=== PATIENT | female | born 1955 | race Caucasian/White ===

== ENCOUNTER → 2016-05-21 | Day surgery (SDC) | payer OTHER ==
[~2016-05-21] VITALS: Ht 162.6 cm; Wt 90.0 kg
[~2016-05-21] MED LIST: ACET-1256 PO; AMLO2.5T PO; AMLO5TAB2 PO; ASPI81TA28 PO; ATEN-173 PO; ATEN50TA8 PO; BTP80 PO; CALC500C70 PO; CMD/25 PO; CMD75 PO; FLEC50TA20 PO; GLUC10007 PO; HYZ/50125 PO; LIDOCAINE HCL 2% 2 ML VIAL (20MG/ML) ONE; LUTE1CAP9 PO; LVNIS100 SQ; MULT-513 PO; PRM625 PO; PROPOFOL IV EMULSION 10 MG/ML 20 ML VIAL IV ONE; TNR25 PO; WARF5TAB90 PO
[2016-05-21 07:05] VITALS: BP 139/97; PULSE 118; TEMP 36.6; O2SAT 98; Ht 162.6 cm; Wt 90.0 kg
[2016-05-21 07:38] VITALS: BP 138/94; PULSE 90; O2SAT 97
[2016-05-21 07:42] VITALS: BP 81/56; PULSE 90; O2SAT 97
[2016-05-21 07:43] VITALS: BP_SYST 109; BP_SYST 98; BP_DIAS 54; BP_DIAS 73; PULSE 105; PULSE 99; O2SAT 97
--- NOTE | 2016-05-21 09:29 | CARDIOVERSION ---
DATE OF OPERATION: 05/21/2016 PROCEDURE: Cardioversion. HISTORY OF PRESENT ILLNESS: The patient is a 60-year-old female who has persistent atrial fibrillation. She has been on a combination of metoprolol and flecainide as well as Coumadin. Her last INR was 2.6. PROCEDURE SUMMARY: The patient was seen and evaluated in the holding area of the cook house laborer. After informed consent was obtained the patient received sedation by anesthesia and then received 200 joules of biphasic energy converting her to a normal sinus rhythm however, after approximately 30 seconds the patient converted back to atrial fibrillation. She was then cardioverted again with 200 joules of biphasic energy to sinus rhythm and unfortunately did not maintain sinus rhythm and converted back to atrial fibrillation. A third cardioversion was performed with the same result. The patient was allowed to recover post cardioversion. She remains in persistent atrial fibrillation. The plan will be for the patient to be discharged home today. She will be allowed to have the flecainide washed out over the next several days and then return later this week to be admitted to the hospital for the start of sotalol. Once she has an adequate number of sotalol doses she will undergo repeat cardioversion. I attest to the content of the Intraoperative Record and any orders documented therein. Any exceptio ns are noted below.
--- NOTE | 2016-05-21 09:41 | Discharge Instructions ---
Discharge Instructions Admission Reason for Admission: Afib *With Anesthesia* Discharge Discharge Diagnosis / Problem: atrila fibrillation Discharge Goals Goal(s): Improve function Activity Recommendations Activity Limitations: resume your previous activity . Instructions / Follow-Up Instructions / Follow-Up Office will call with readmission instructions Current Hospital Diet Patient's current hospital diet: Discharge Diet Recommended Diet: Regular Diet Pending Studies Studies pending at discharge: no Medical Emergencies . Who to Call and When: Medical Emergencies: If at any time you feel your situation is an emergency, please call 911 immediately. . Non-Emergent Contact Non-Emergency issues call your: Scallop Binder . . "Provider Documentation" section prepared by Arnav Elizabeth. VTE Core Measure Inpt VTE Proph given/why not?: Warfarin (Coumadin)
[2016-05-21 09:45] VITALS: BP 126/80; PULSE 87; O2SAT 98
--- NOTE | 2016-05-21 10:16 | Anesthesiology Progress Note ---
Anesthesia Post Op Note Date & Time May 21, 2016 at 10:15 Vital Signs Pain Intensity: 0 Vital Signs Past 12 Hours Date Time Temp Pulse Resp B/P Pulse Ox O2 Delivery O2 Flow Rate FiO2 05/21/16 09:45 87 16 126/80 98 Room Air 05/21/16 09:40 88 16 126/80 98 Room Air 05/21/16 09:25 84 16 124/85 98 Room Air 05/21/16 09:10 95 16 120/80 98 Room Air 05/21/16 08:55 92 16 113/81 98 Room Air 05/21/16 08:40 78 16 114/90 98 Room Air 05/21/16 08:25 80 16 107/73 98 Room Air 05/21/16 08:10 76 16 116/78 98 Room Air 05/21/16 07:50 80 18 109/73 95 Nasal Cannula 3 05/21/16 07:43 105 16 98/54 97 Nasal Cannula 3 05/21/16 07:43 99 16 109/73 97 Nasal Cannula 3 05/21/16 07:42 90 16 81/56 97 Nasal Cannula 3 05/21/16 07:38 90 16 138/94 97 Nasal Cannula 3 05/21/16 07:05 36.6 118 16 139/97 98 Room Air Notes Mental Status: alert / awake / arousable, participated in evaluation Pt Amnestic to Procedure: Yes Nausea / Vomiting: adequately controlled Pain: adequately controlled Airway Patency, RR, SpO2: stable & adequate BP & HR: stable & adequate Hydration State: stable & adequate Anesthetic Complications: no major complications apparent
--- NOTE | 2016-05-21 10:58 | History & Physical Bridge Note ---
H&P Re-Evaluation Bridge Note: I have examined the patient, reviewed the History & Physical and in the interval since the performance of the History & Physical I have noted the following changes of clinical significance: No changes noted
== END | disposition home or self-care (01) ==
LOC: C.CATH 06:43
PROVIDERS: ATTEND Internal Medicine Interventional Cardiology
DX: I48.1 Persistent atrial fibrillation (principal); Z79.01 Long term (current) use of anticoagulants; F17.200 Nicotine dependence, unspecified, uncomplicated; E66.9 Obesity, unspecified

== ENCOUNTER 2016-05-24 08:34 | Inpatient (IN) | payer OTHER ==
[2016-05-24] VITALS (8 sets, daily range): BP systolic 129–148; BP diastolic 86–103; PULSE 102–121; TEMP 36.6–37.2; O2SAT 95–100; Ht 162.6 cm; Wt 88.3 kg
[~2016-05-24] VITALS: Ht 162.6 cm; Wt 88.3 kg
[~2016-05-24 08:34] MED LIST changes: -AMLO5TAB2 PO; -BTP80 PO; -CMD75 PO; -FLEC50TA20 PO; -LIDOCAINE HCL 2% 2 ML VIAL (20MG/ML) ONE; -LVNIS100 SQ; -PROPOFOL IV EMULSION 10 MG/ML 20 ML VIAL IV ONE; -TNR25 PO
[2016-05-24] MEDS ORDERED: ACETAMINOPHEN 325 MG TAB PO PRN (09:00)
[2016-05-24] MEDS ORDERED: ALUMINUM/MAGNESIUM/SIMETH (MAALOX MAX) 30 ML UDC PO PRN (09:00)
[2016-05-24] MEDS ORDERED: POLYETHYLENE (MIRALAX) 17 GM PACK PO PRN (09:00)
[2016-05-24] MEDS ORDERED: MAGNESIUM HYDROXIDE SUSP 30 ML UDC PO PRN (09:00)
[2016-05-24] MEDS ORDERED: ONDANSETRON INJ 2 MG/ML 2 ML VIAL IV PRN (09:00)
[2016-05-24] MEDS ORDERED: ZOLPIDEM TARTRATE 5 MG TAB PO PRN ×2 (09:00)
--- NOTE | 2016-05-24 09:52 | HISTORY & PHYSICAL EXAMINATION ---
DATE OF ADMISSION: 05/24/2016 CHIEF COMPLAINT: Atrial fibrillation. HISTORY OF PRESENT ILLNESS: This is a 60-year-old female, who has had paroxysmal atrial fibrillation. She had been well controlled with flecainide until recently, she presented with persistent atrial fibrillation. Earlier this week, she underwent a cardioversion where she was able to convert to a normal sinus rhythm, but would not hold for more than 30 seconds to a minute and then returned to atrial fibrillation. We have allowed the flecainide to wash out as an outpatient. She is now admitted for the start of sotalol and will be admitted to a telemetry bed. She has no complaints today. All questions were answered. ALLERGIES: LISINOPRIL, SHE GETS A COUGH. PAST MEDICAL HISTORY: The patient has a history of hypertension. No prior history of diabetes, kidney disease or strokes. SOCIAL HISTORY: The patient is a cigarette smoker. FAMILY MEDICAL HISTORY: Noncontributory. REVIEW OF SYSTEMS: A 10-point review of systems is negative except for the history of chief complaint. PHYSICAL EXAMINATION: GENERAL: She is alert and oriented, in no acute distress. VITAL SIGNS: Blood pressure is 130/70 and pulse is irregular at 100 beats per minute. She is afebrile. HEENT: She is normocephalic. Pupils are equal and reactive to light. Extraocular muscles are intact bilaterally. NECK: The neck veins are flat. Carotids have good upstrokes bilaterally without bruits. Thyroid is nonpalpable. RESPIRATORY: Breath sounds equal bilaterally and clear to auscultation. CARDIOVASCULAR: Heart has a regular rhythm. Normal S1 and S2. No S3 or S4. No cardiac rubs or murmurs. GASTROINTESTINAL: Abdomen is soft and nontender without organomegaly. EXTREMITIES: Free of edema, digit clubbing or cyanosis. NEUROLOGIC: Grossly intact. SKIN: Warm to touch. LYMPH NODES: Negative to palpation. LABORATORY DATA: The patient remains in atrial fibrillation on telemetry. IMPRESSION: 1. Persistent atrial fibrillation. 2. Need for start of antiarrhythmic medication. RECOMMENDATIONS: As outlined above, the patient will be started on sotalol 80 mg twice daily. I have purposely held her atenolol until the sotalol is started and we can see if her heart rate responds before adding back any beta blockers. All her other medications including her warfarin will remain the same.
[2016-05-24 10:06] LABS: BASO % 0.2 %; BASO ABS # 0.01 K/uL (0-0.2); COMPLETE YES; EOS % 2.7 %; HEMATOCRIT 40.2 % (37-47); IG% 0.3 %; LYMPH % 24.7 %; LYMPH ABS # 1.57 K/uL (1.2-3.4); MEAN CORPUSCULAR HEMOGLOBIN 35.8 pg (25-34); MEAN CORPUSCULAR HGB CONC 35.1 g/dl (32-36); MONO % 5.7 %; NEUT % 66.4 %; PLATELET COUNT 232 K/uL (130-400); RED BLOOD COUNT 3.94 M/uL (4.2-5.4); WHITE BLOOD COUNT 6.36 K/uL (4.8-10.8)
[2016-05-24] MEDS: SOTALOL HCL 80 MG TAB PO SCH ×2 (10:12→20:52)
[2016-05-24 10:15] LABS: INR 2.2 (0.9-1.1); PARTIAL THROMBOPLASTIN RATIO 1.4; PROTHROMBIN TIME (PATIENT) 23.9 SECONDS (9.0-12.0)
[2016-05-24 10:29] LABS: BLOOD UREA NITROGEN 27 mg/dl (7-18); BUN/CREATININE RATIO 24.8 (10-20); CALCIUM 9.2 mg/dl (8.5-10.1); CARBON DIOXIDE 25 mmol/L (21-32); CHLORIDE 104 mmol/L (98-107); GLUCOSE 130 mg/dl (70-99); MAGNESIUM 1.9 mg/dl (1.8-2.4); POTASSIUM 3.6 mmol/L (3.5-5.1); SODIUM 140 mmol/L (136-145)
[2016-05-24] MEDS ORDERED: WARFARIN SOD 5 MG TAB PO SCH (16:00)
[2016-05-24] MEDS: WARFARIN SOD 5 MG TAB PO SCH (16:50)
--- NOTE | 2016-05-24 18:04 | Anesthesiology Progress Note ---
Anesthesia Progress Note Date of Service May 24, 2016. Progress Notes The patient is a 60 y/o female scheduled for cardioversion on 05/27/16. The patient had a cardioversion on 05/21/16 that briefly converted her afib to NSR. However, she soon reverted back to afib with RVR. She is now admitted on telemetry and has been changed to sotalol. PMH includes smoking, HTN, and obesity. Her EKG shows afib with RVR and inferior T wave abnormality. Labs are significant for INR 2.2 and BUN 27. On exam the patient is pleasant. She has a MP 3 airway with full neck extension and upper partial dentures. Lungs are clear. Heart is irregular. She is negative for carotid bruits. The patient was consented for MAC sedation. She was counseled to remain NPO after 2300 on 05/26/16.
[2016-05-25] VITALS (7 sets, daily range): BP systolic 118–157; BP diastolic 81–107; PULSE 96–118; TEMP 36.6–37.2; O2SAT 95–98
[2016-05-25] MEDS: AMLODIPINE BESYLATE 5 MG TAB PO SCH (08:17)
[2016-05-25] MEDS: SOTALOL HCL 80 MG TAB PO SCH ×2 (08:17→20:51)
[2016-05-25] MEDS: LOSARTAN/HCTZ 50-12.5 EA TAB PO SCH (08:18)
[2016-05-25] MEDS: ESTROGENS, CONJUGATED 0.625 MG TAB PO SCH (08:18)
[2016-05-25] MEDS: ASPIRIN 81 MG ECTAB PO SCH (08:18)
--- NOTE | 2016-05-25 10:01 | PROGRESS NOTE ---
DATE: 05/25/2016 FOLLOWUP VISIT SUBJECTIVE: The patient is a 60-year-old female who was admitted for the start of antiarrhythmic medication with sotalol. She has received her first 2 doses of sotalol. I deliberately held her atenolol until we saw her heart rate response to the sotalol. Her heart rates have been in the 90s to low 100s and today I will restart her atenolol at 25 mg twice daily. Her EKG shows atrial fibrillation and no significant extension of her QT interval. She has no complaints today. OBJECTIVE: VITAL SIGNS: Blood pressure 137/90, pulse is irregular at 96 beats per minute. She is afebrile. GENERAL: She is alert and oriented. HEENT: She is normocephalic. She wears corrective lenses. NECK: The neck veins are flat. Carotids have good upstrokes bilaterally without bruits. Thyroid is nonpalpable. RESPIRATORY: Breath sounds are equal bilaterally and clear to auscultation. CARDIOVASCULAR: Heart has a regular rhythm. Normal S1, S2. No S3, S4. No cardiac rubs or murmurs. GASTROINTESTINAL: Abdomen is soft, nontender without organomegaly. EXTREMITIES: Free of edema, digital clubbing or cyanosis. NEUROLOGIC: Grossly intact. SKIN: Warm to touch. LYMPH NODES: Negative to palpation. IMPRESSION: 1. Persistent atrial fibrillation. 2. Hypertension. RECOMMENDATIONS: As outlined above, I have restarted the patient's atenolol at a reduced dose of 25 mg twice daily. She had been on 50 mg of atenolol in the morning and 25 mg at night. We will see what her heart rate response is with this current dose of atenolol and her sotalol. Otherwise, she is doing well and we still plan on performing cardioversion on Friday.
[2016-05-25] MEDS: WARFARIN SOD 5 MG TAB PO SCH (15:56)
[2016-05-26 04:27] VITALS: BP 128/89; PULSE 93; TEMP 37.4; O2SAT 97
[2016-05-26 07:38] VITALS: BP 143/101; PULSE 100; TEMP 36.7; O2SAT 99
[2016-05-26 07:39] VITALS: BP 140/96
[2016-05-26] MEDS: LOSARTAN/HCTZ 50-12.5 EA TAB PO SCH (08:45)
[2016-05-26] MEDS: ESTROGENS, CONJUGATED 0.625 MG TAB PO SCH (08:46)
[2016-05-26] MEDS: SOTALOL HCL 80 MG TAB PO SCH ×2 (08:46→20:29)
[2016-05-26] MEDS: ASPIRIN 81 MG ECTAB PO SCH (08:46)
[2016-05-26] MEDS: AMLODIPINE BESYLATE 5 MG TAB PO SCH (08:46)
--- NOTE | 2016-05-26 10:27 | PROGRESS NOTE ---
DATE: 05/26/2016 FOLLOWUP VISIT SUBJECTIVE: The patient is a 60-year-old female with persistent atrial fibrillation who was admitted for the start of sotalol. She is tolerating this medication. Yesterday we add back her atenolol at a lower dose. She had been on 75 mg daily, and we started her with 50 mg daily. Her heart rate still remained a little bit on the high side and we will restart her home dose of 75 mg of atenolol a day, that being 50 mg in the morning and 25 in the evening. We will check an INR today. The plan is for cardioversion in the morning. OBJECTIVE: VITAL SIGNS: Blood pressure is 140/90, pulse is irregular at 100 beats per minute. GENERAL: She is afebrile. HEENT: She is normocephalic. Pupils are equal and reactive to light. Extraocular muscles are intact bilaterally. NECK: The neck veins are flat. Carotids have good upstrokes bilaterally without bruits. Thyroid is nonpalpable. RESPIRATORY: Breath sounds equal bilaterally and clear to auscultation. CARDIOVASCULAR: Heart has an irregular rhythm. Normal S1, S2. No S3, S4. No cardiac rubs or murmurs. GASTROINTESTINAL: Abdomen is soft, nontender without organomegaly. EXTREMITIES: Free of edema, digit clubbing, or cyanosis. NEUROLOGIC: Grossly intact. SKIN: Warm to touch. LYMPH NODES: Negative to palpation. LABORATORY DATA: INR is pending. EKG shows atrial fibrillation with no prolongation of the QT interval. IMPRESSION: 1. Persistent atrial fibrillation. 2. Hypertension. RECOMMENDATIONS: The patient as outlined above will undergo a cardioversion tomorrow. I have explained the risks, benefits and intent of the cardioversion to her, and she is willing to proceed.
[2016-05-26 11:18] LABS: INR 1.7 (0.9-1.1); PROTHROMBIN TIME (PATIENT) 18.9 SECONDS (9.0-12.0)
[2016-05-26 11:29] VITALS: BP_SYST 121; BP_SYST 149; BP_DIAS 121; BP_DIAS 93; PULSE 107; TEMP 37; O2SAT 97
[2016-05-26 15:39] VITALS: BP 129/101; PULSE 99; TEMP 37.2; O2SAT 99
[2016-05-26] MEDS ORDERED: WARFARIN SOD 7.5 MG TAB PO SCH (16:00)
[2016-05-26 19:42] VITALS: BP 124/95; PULSE 126; TEMP 36.7; O2SAT 98
[2016-05-27] VITALS (17 sets, daily range): BP systolic 111–173; BP diastolic 61–115; PULSE 56–111; TEMP 36.6–36.8; O2SAT 95–100
[2016-05-27 06:00] LABS: INR 1.7 (0.9-1.1)
[2016-05-27] MEDS ORDERED: PROPOFOL IV EMULSION 10 MG/ML 20 ML VIAL IV ONE (07:00)
[2016-05-27] MEDS ORDERED: MIDAZOLAM HCL 1 MG/ML 2ML VIAL ONE (07:30)
[2016-05-27] MEDS ORDERED: FENTANYL CITRATE INJ 50 MCG/1 ML 2 ML VIAL ONE (07:30)
[2016-05-27] MEDS ORDERED: ENOXAPARIN 100 MG/1ML SYR ONE (07:38)
--- NOTE | 2016-05-27 08:05 | Cardiology Procedure Brief Nt ---
Preliminary Cardiology Note Procedure Date May 27, 2016. Pre-Procedure Diagnosis symptomatic atrial fibrillation Post-Procedure Diagnosis No NILO thrombus, successful conversion to SR Procedure(s) Performed JAYCE guided Cardioversion Bottling Machine Operator Sonia Reed DO Wood Boring Machine Operator(s) Not applicable Estimated Blood Loss none Preliminary Findings No LA to NILO thrombus, Successful conversion to SR with 200 J of biphasic energy x 1 dose Recommendations Continue Sotalol and coumadin. Lovenox bridge to INR > 2 Specimens not applicable Anesthesia per anesthesia,Versed 4mg IV,Fentanyl 100 mcg IV, [id number],narcan 0.4mg Complication(s) None Disposition recovery in cardiac label fuser tender staging area , then transfer to PCU
--- NOTE | 2016-05-27 08:07 | Anesthesiology Progress Note ---
Anesthesia Post Op Note Date & Time May 27, 2016 at 08:07 Vital Signs Pain Intensity: 0 Vital Signs Past 12 Hours Date Time Temp Pulse Resp B/P Pulse Ox O2 Delivery O2 Flow Rate FiO2 05/27/16 08:01 56 16 140/65 99 Nasal Cannula 4 05/27/16 07:58 56 16 141/90 99 Nasal Cannula 4 05/27/16 07:54 60 16 152/82 99 Nasal Cannula 4 05/27/16 07:51 111 16 157/115 99 Nasal Cannula 4 05/27/16 07:46 102 16 158/107 99 Nasal Cannula 4 05/27/16 07:41 105 16 140/100 99 Nasal Cannula 4 05/27/16 07:33 36.8 106 16 173/110 100 Room Air 05/27/16 04:06 Room Air 05/27/16 03:50 36.8 93 17 139/108 98 Room Air 05/27/16 00:21 Room Air 05/27/16 00:00 36.8 108 21 132/100 96 Room Air 05/26/16 22:28 Room Air Notes Mental Status: alert / awake / arousable, participated in evaluation Pt Amnestic to Procedure: Yes Nausea / Vomiting: adequately controlled Pain: adequately controlled Airway Patency, RR, SpO2: stable & adequate BP & HR: stable & adequate Hydration State: stable & adequate Anesthetic Complications: no major complications apparent
[2016-05-27] MEDS ORDERED: ATROPINE SULFATE 0.1 MG/ML 5ML SYR IV PRN (08:15)
[2016-05-27] MEDS ORDERED: EpHEDrine SULFATE INJ 50 MG/ML AMP IV PRN (08:15)
[2016-05-27] MEDS ORDERED: NALOXONE HCL 0.4 MG/1 ML VIAL/CARP ONE (08:17)
[2016-05-27] MEDS: ESTROGENS, CONJUGATED 0.625 MG TAB PO SCH (09:00)
[2016-05-27] MEDS: AMLODIPINE BESYLATE 5 MG TAB PO SCH (09:09)
[2016-05-27] MEDS: ASPIRIN 81 MG ECTAB PO SCH (09:09)
[2016-05-27] MEDS: SOTALOL HCL 80 MG TAB PO SCH (09:09)
[2016-05-27] MEDS: LOSARTAN/HCTZ 50-12.5 EA TAB PO SCH (09:10)
--- NOTE | 2016-05-27 11:21 | Cardiology Follow-Up ---
Subjective General Date of Service: May 27, 2016. Chief Complaint: follow up AF, cardioversion thsi am Pt evaluation today including: conversation w/ patient, conversation w/ family , physical exam History of Present Illness The patient is a 60 year old female seen in follow up. She remains in sinus rhythm post JAYCE guided CV this am. Allergies Coded Allergies: Lisinopril (Verified Allergy, Intermediate, COUGH, 02/15/15) Social History Smoking Status: Never Smoker Hx Tobacco Use In Past Year?: Yes (QUIT SMOKING A COUPLE DAYS AGO PER PT. USE TO SMOKE 10 CIGARRETTES A DAY) Hx Alcohol Use - Type And Amou: Yes (WINE- 2 GLASSES/NIGHT) Hx Substance Use - Type And Am: No Physical Exam Vital Signs Last Vital Signs Documentation Date Time Temp Pulse Resp B/P Pulse Ox O2 Delivery O2 Flow Rate FiO2 05/27/16 10:30 58 16 127/80 98 Room Air 05/27/16 08:31 36.6 05/27/16 08:01 4 Physical Exam Constitutional: Level of Distress: NAD Head: normocephalic Neck: supple, trachea midline Lungs: Auscultation: no wheezing, no rales/crackles, no rhonchi Cardiovascular: Heart Auscultation: RRR, normal S2 Abdomen: Inspection & Palpation: soft, non-distended Extremities: no cyanosis, no edema Neurologic: Gait & Station: pertinent finding (no focal neuro deficits ) Assessment and Plan Assessment and Plan Impression: 1. Symptomatic PAF, recent unsuccessful DCCV on flecainide, therefore patient admitted after washing out flecainide as outpatient -Sotalol initiated -low dose atenolol added back for further rate control 2. INR was below goal today prior to cardioversion. -JAYCE confirmed no NILO thrombus Plan: DC with plans for lovenox bridge 90 mg SQ Q 12 hours. outpatient ACC follow up. Recommend considering sleep medicine consult as outpt for suspected NASRIN. Refer to discharge summary for additional follow up details. Eddie Reed DO Laboratory Results Last 24 Hours Test 05/27/16 05:30 Prothrombin Time 19.0 SECONDS Prothromb Time International Ratio 1.7
[2016-05-27] MEDS ORDERED: WARFARIN SOD 7.5 MG TAB PO ONE (11:22)
[2016-05-27] MEDS ORDERED: BTP80 PO (11:57)
[2016-05-27] MEDS ORDERED: CMD75 PO (11:57)
[2016-05-27] MEDS ORDERED: LVNIS100 SQ (11:57)
[2016-05-27] MEDS ORDERED: TNR25 PO (11:57)
--- NOTE | 2016-05-27 12:04 | Discharge Instructions ---
Discharge Instructions Procedure Procedure Date: May 27, 2016. Reason for Visit: Symptomatic refractor atrial fibrillation Discharge Discharge Date: May 27, 2016. Discharge Diagnosis: symptomatic atrial fibrillation. Subtherapeutic INR. Last Recorded Wt (Kilograms): 88.300 Anesthesia Post Anesthesia Instructions: If you have had General Anesthesia or IV Sedation: * Do not drive today. * Resume driving when surgeon permits. * Do not make important decisions or sign legal documents today. * Call surgeon for: 1. Temperature elevations greater than 101 degrees F. 2. Uncontrollable pain. 3. Excessive bleeding. 4. Persistent nausea and vomiting. 5. Medication intolerance (nausea, vomiting or rash). * For nausea and vomiting use only clear liquids such as: tea, soda, bouillon until nausea subsides, then gradually increase diet as tolerated. * If you have any concerns or questions, call your surgeon's office. If physician is unavailable and it is an emergency, call 911 or go to the nearest emergency room. Instructions Activity Recommendations: no limitations Recommended Home Diet: resume previous diet Allergies: Coded Allergies: Lisinopril (Verified Allergy, Intermediate, COUGH, 02/15/15) Provider Instructions ACTIVITY RECOMMENDATIONS: Resume activities as tolerated with no limitations unless specified. _x_ No lifting over 10__ pounds for 24 hours. _x_ Do not engage in vigorous exercise, sexual activity, or sports for 24 hours. _x_ Do not drive or operate any motorized equipment for 24 hours. _x_ You may return to work/school tomorrow. _x_ Nothing to eat or drink until gag reflex returns. _x_ No HOT or WARM liquids for _24_ hours. _x_ Avoid "scratchy" foods such as potato chips or pretzels for 24 hours following procedure. SPECIAL CARE: If you experience coughing up or vomiting of blood, contact __Dr Reed Follow Up Follow-up with: 1. [facility] coumadin clinic within [address] Elizabeth within 1-2 weeks. 3. Discuss outpatient sleep medicine consultation with Dr Elizabeth at your next visit, to screen for sleep apnea [place] Recommendations: Call your doctor if: * Temperature above 101 degrees * Pain not relieved by pain medicine ordered * There is increased drainage or redness from any incision * You have any unanswered questions or concerns. Your Doctors Instructions noted above were prepared by provider Alexi Reed. Patient Signature Section: Patient Instructions Signature Page Hope Pérez Patient (or Guardian) Signature/Date: I have read and understand the instructions given to me by my caregivers. Caregiver/RN/Doctor Signature/Date: The above-named patient and/or guardian has received patient instructions on this date. + Original Patient Signature Page (only) stays with chart. Please make copy for patient.
--- NOTE | 2016-05-27 12:19 | Discharge Summary ---
Discharge Summary Admission Date: May 24, 2016 at 08:34 Discharge Date: May 27, 2016 Discharge Disposition: Home Principal Diagnosis: Symptomatic atrial fibrillation Secondary Diagnoses/Problems: Subtherapeutic INR Suspected underlying obstructive sleep apnea Hypertension Procedures: 1. Initiation of the antiarrhythmic medication sotalol, with telemetry and EKG monitoring. 2. Transesophageal echocardiogram guided direct-current cardioversion, 05/27/16. Medication Reconciliation New Medications: Atenolol (Atenolol) 25 Mg Tab 25 MG PO BID, #60 TAB 3 Refills Enoxaparin (Enoxaparin Sodium) 100 Mg/Ml Inj 90 MG SQ Q12H for 3 Days, 0 Refills next dose at 7:30 pm on 05/27/16, then every 12 hours after (7:30 am, 7:30 pm) until outpatient INR is greather than or equal to 2 Sotalol HCl (Sotalol HCl) 80 Mg Tab 80 MG PO BID, #60 TAB 3 Refills Warfarin Sod (Coumadin) 7.5 Mg Tab 7.5 MG PO DAILY@16, #30 TAB 0 Refills continue 5 mg tablets, take 1.5 tablets daily until directed otherwise by the anticoagulation clinic. Continued Medications: Acetaminophen (Tylenol) 500 Mg Tab 500 MG PO PRN, TAB Amlodipine (Norvasc) 2.5 Mg Tab 2.5 MG PO DAILY, TAB Aspirin (Aspirin Ec) 81 Mg Tab 81 MG PO DAILY Calcium/Vitamin D (Os-Vickey 500 Plus D) Tab 1 TAB PO DAILY, TAB Estrogens, Conjugated (Premarin) 0.625 Mg Tab 0.625 MG PO DAILY, TAB Hctz/Losartan (Hyzaar 12.5MG/50MG) Tab 1 TAB PO DAILY for 30 Days, #30 TAB 5 Refills Lutein-Zeaxanthin (Lutein/Zeaxanthin) 1 Cap Cap 1 CAP PO DAILY Multivitamins/Minerals (Mvi With Minerals) Tab 1 TAB PO DAILY, TAB Discontinued Medications: Atenolol (Tenormin) 50 Mg Tab 50 MG PO QAM, TAB Atenolol (Tenormin) 25 Mg Tab 25 MG PO QPM, TAB Glucosamine Sulfate (Glucosamine) 1,000 Mg Tab 1000 MG PO DAILY Warfarin Sod (Coumadin) 2.5 Mg Tab 1 TAB PO DIRECTED for 30 Days, #30 TAB 3 Refills Warfarin Sodium (Coumadin) 5 Mg Tab 1 TAB PO 6XWK for 90 Days, #90 TAB 1 Refill Hospital Course Mrs Omalley is a 60-year-old female with past medical history of hypertension and symptom of paroxysmal atrial fibrillation. She follows with Dr. Elizabeth of our practice as an outpatient. She has a prior history of syncopal atrial fibrillation fitted previously been controlled with flecainide. Recent outpatient follow-up, it was determined that she had reverted to atrial fibrillation. She presented for an elective direct-current cardioversion last week, but that this was ultimately unsuccessful and she was discharged post procedure in atrial fibrillation. She had been counseled to discontinue her flecainide for several days to allow this to wash out of her system and she therefore was then directed admitted on 05/24/16 to our cardiology service for planned initiation of antiarrhythmic medication sotalol under telemetry and EKG guidance. The patient tolerated the initiation of sotalol well. On admission, her previous atenolol was discontinued. Her heart rates however remained elevated, and therefore low-dose atenolol was reinitiated along with the sotalol. The patient was documented to have tolerated atenolol 25 mg twice a day, and sotalol 80 mg twice a day on telemetry. Corrected QT intervals were stable. She was to undergo a repeat attempt at direct-current cardioversion today, however it was noted that her international normalized ratio is below goal at 1.7 on today's morning laboratories. She therefore received Lovenox 90 mg subcutaneously at 7:40 AM. She then underwent a combined procedure with transesophageal echocardiogram guided direct-current cardioversion with sedation provided by anesthesia this morning. A focused transesophageal echocardiogram was performed to exclude left atrial appendage and left atrial thrombus. This was followed by a single dose of biphasic synchronized energy at 200 J with successful conversion to sinus rhythm. She is to be discharged on a higher dose of Coumadin, 7.5 mg instead of 5 mg alternating with 2.5 mg which was her prior outpatient dose. She is going to be discharged on a low molecular weight heparin bridge, she received Lovenox 90 mg subcutaneous every 12 hours until her INR is greater than or equal to 2. She received her first dose this morning 05/27/16 at 7:40 AM. I counseled her to take the next dose at 7:30 PM, and follow this with doses every 12 hours 7:30 AM/7:30 PM. She was provided with a prescription for 6 doses, but I'm optimistic that her INR will become therapeutic prior to needing all 6 doses. Total time spent on discharge = 60 minutes This includes examination of the patient, discharge planning, medication reconciliation, and communication with other providers. Discharge Instructions She was provided discharge instructions a standard for post transesophageal echocardiogram patient's including to avoid hot and scratchy fluids for the next 24 hours. She is cleared to return to work tomorrow. Follow-up appointments: 1. Patient is to follow-up with the [facility] anticoagulation clinic within one day, an appointment was requested electronically. 2. Patient is to follow-up with Dr. Elizabeth of our practice within one to 2 weeks. An appointment has been requested. Patient should hear from the office by telephone or my [employer] message. 3. Patient is to discuss possible outpatient sleep medicine consultation with Dr. Elizabeth next cardiology follow-up if she is not already been screened for obstructive sleep apnea in the past.
--- NOTE | 2016-05-27 12:32 | CARDIOVERSION ---
DATE OF OPERATION: 05/27/2016 PREPROCEDURE DIAGNOSIS: Symptomatic atrial fibrillation, subtherapeutic international normalized ratio. Post procedure DIAGNOSIS: No left atrium or left atrial appendage thrombus, successful conversion to sinus rhythm. PROCEDURE PERFORMED: Transesophageal echocardiogram guided direct current cardioversion. COLLAR POINTER: Alexi Reed D.O. ASSISTANTS: None applicable. DESCRIPTION OF PROCEDURE: After informed consent was obtained and a time out was performed the patient was sedated with the assistance of Dr. Andrea of anesthesia. The patient received Versed 4 mg IV, fentanyl 100 mcg, propofol 40 mg IV in divided doses. The patient then underwent a focused transesophageal echocardiogram to exclude left atrial thrombus. There was no left atrium or left atrial appendage thrombus. The patient then underwent synchronized direct current cardioversion receiving 200 joules of biphasic energy and converting from atrial fibrillation of 122 beats per minute to sinus rhythm at 60 beats per minute. The patient's heart rate and blood pressure remained stable through the procedure. The patient was slow to recover post-procedure with a relatively low respiratory rate, and therefore Narcan 0.4 mg intravenous was administered to hasten her recovery. COMPLICATIONS: None. DISPOSITION: The patient is to recover in the cardiac catheterization laboratory staging area, then she was to be transferred from the cardiac catheterization lab to the PCU. I attest to the content of the Intraoperative Record and any orders documented therein. Any exceptions are noted below. MTDD
--- NOTE | 2016-05-27 13:27 | TEE ---
*NOTICE TO RECEIVING [employer] AGENCY This information is strictly Confidential and protected under [place] law. [place] law prohibits you from making any further disclosure of this information unless further disclosure is expressly permitted by the written consent of the person to whom it pertains or is authorized by law. A general authorization for the release of medical or other information is not sufficient for this purpose. Hospital accepts no responsibility if the information is made available to any other person, INCLUDING THE PATIENT. Interpretation Summary * Name: TOBI LOWRY Study Date: 05/27/2016 07:40 AM BP: 140/65 mmHg * Patient Location: [facility] HR: 112 * : 1955 (M/d/yyyy) Gender: Female Height: 64 in * Age: 60 yrs Ethnicity: [place] Weight: 194 lb * Ordering Phys[facility] * Performed By: Dana Paiz RDCS * * Reason For Study: Atrial fibrillation * BSA: 1.9 m2 * -- Conclusions -- * A focussed study was performed to risk stratify the patient prior to direct current cardioversion. * Limited views were obtained of the left atrium and left atrial appendage. * No left atrial mass or thrombus visualized. * No thrombus is detected in the left atrial appendage. Procedure Details * The transesophageal portion of this study was personally supervised by the undersigned interpreting physician. * JAYCE Probe #2 utilized for procedure. * The study was performed in Cardiac Catheterization Lab. * Time out was conducted by the physician, nurse, and digital camera technician with positive identification of patient and procedure. * Informed consent for Transesophageal Echocardiogram was obtained prior to the procedure. * An intravenous line was placed. A topical anesthetic agent was used for oropharangeal anesthesia. A bite block was inserted. * Sedation performed by the anesthesia department. * The patient's vital signs, including blood pressure, heart rate, pulse oximetry and cardiac rhythm were monitored throughout the procedure . * The transesophageal probe was passed without difficulty. * The patient tolerated the procedure well without evidence of orophangeal or esophageal trauma. * A 2D transesophageal echocardiogram was performed. Atria * The left atrium is mildly dilated. * No left atrial mass or thrombus visualized. * No thrombus is detected in the left atrial appendage. * Right atrial size is normal.
[2016-05-27] MEDS ORDERED: ENOXAPARIN 100 MG/1ML SYR SQ ONE (19:30)
[2016-05-28] MEDS ORDERED: WARFARIN SOD 7.5 MG TAB PO SCH (16:00)
== END 2016-05-27 13:30 | disposition home or self-care (01) | DRG 310 ==
LOC: C.2E 08:34
PROVIDERS: ADMIT Internal Medicine Interventional Cardiology; ATTEND Internal Medicine Interventional Cardiology
PROC: 5A2204Z Restoration of Cardiac Rhythm, Single (ICD-10-PCS; principal; 2016-05-27 07:30)
DX: I48.1 Persistent atrial fibrillation (principal); I48.0 Paroxysmal atrial fibrillation; T45.516A Underdosing of anticoagulants, initial encounter; I10 Essential (primary) hypertension; F17.210 Nicotine dependence, cigarettes, uncomplicated; G47.33 Obstructive sleep apnea (adult) (pediatric); Y92.009 Unspecified place in unspecified non-institutional (private) residence as the place of occurrence of the external cause

== ENCOUNTER → 2017-06-19 | Outpatient (CLI) | payer OTHER ==
[~2017-06-19] MED LIST changes: -ATEN-173 PO; -ATEN50TA8 PO; +BTP80 PO; -CMD/25 PO; +CMD75 PO; -GLUC10007 PO; +LVNIS100 SQ; +TNR25 PO; -WARF5TAB90 PO
[2017-06-19 13:12] LABS: INR 2.7 (0.9-1.1)
== END | disposition home or self-care (01) ==
LOC: C.LAB 12:43
PROVIDERS: ATTEND Pharmacist Pharmacotherapy
DX: I48.2 Chronic atrial fibrillation (principal); Z51.81 Encounter for therapeutic drug level monitoring; Z79.01 Long term (current) use of anticoagulants

== ENCOUNTER → 2017-06-30 | Outpatient (CLI) | payer OTHER ==
--- NOTE | 2017-06-30 09:25 | DIAGNOSTIC IMAGING REPORT ---
L-SPINE MIN 4 VIEWS ROUTINE CLINICAL HISTORY: LOW BACK PAIN COMPARISON STUDY: No previous studies for comparison. FINDINGS: No acute fractures are visualized. There are multilevel degenerative changes. There is disc space narrowing most pronounced the L2-3 and L5-S1 levels. There is indistinctness of the L5-S1 endplates. While this may be on a degenerative basis, a discitis cannot be excluded. IMPRESSION: 1. No acute fractures 2. Disc space narrowing at the L2-3 and L5-S1 levels 3. Possible erosive changes involving the L5-S1 endplates Electronically signed by: Will Angela M.D. 06/30/2017 9:24 AM Dictated Date/Time: 06/30/2017 9:22 AM
== END ==
LOC: C.RAD 08:59
PROVIDERS: ATTEND Physician Assistant
DX: M54.5 Low back pain (principal)

== ENCOUNTER → 2017-12-02 | Outpatient (CLI) | payer OTHER ==
[2017-12-02 15:36] LABS: BASO % 0.2 %; BASO ABS # 0.01 K/uL (0-0.2); EOS % 3.9 %; EOS ABS # 0.24 K/uL (0-0.5); HEMATOCRIT 39.9 % (37-47); HEMOGLOBIN 13.7 g/dL (12.0-16.0); IG# 0.02 K/uL (0.00-0.02); LYMPH % 40.6 %; MEAN CORPUSCULAR HEMOGLOBIN 33.7 pg (25-34); MEAN CORPUSCULAR HGB CONC 34.3 g/dl (32-36); MONO % 7.5 %; MONO ABS # 0.46 K/uL (0.11-0.59); NEUT % 47.5 %; NEUT ABS # 2.93 K/uL (1.4-6.5); PLATELET COUNT 245 K/uL (130-400); RED CELL DISTRIBUTION WIDTH CV 12.7 % (11.5-14.5); RED CELL DISTRIBUTION WIDTH SD 45.4 fL (36.4-46.3); WHITE BLOOD COUNT 6.16 K/uL (4.8-10.8)
== END | disposition home or self-care (01) ==
LOC: C.LAB 14:14
PROVIDERS: ATTEND Physician Assistant
DX: L30.9 Dermatitis, unspecified (principal)

== ENCOUNTER → 2017-12-17 | Outpatient (CLI) | payer OTHER ==
[2017-12-17 15:44] LABS: HEMATOCRIT 42.1 % (37-47); HEMOGLOBIN 14.4 g/dL (12.0-16.0); MEAN CELL VOLUME 98.8 fL (80-100); MEAN CORPUSCULAR HEMOGLOBIN 33.8 pg (25-34); MEAN CORPUSCULAR HGB CONC 34.2 g/dl (32-36); MEAN PLATELET VOLUME 10.9 fL (7.4-10.4); PLATELET COUNT 254 K/uL (130-400); RED CELL DISTRIBUTION WIDTH CV 13.1 % (11.5-14.5); RED CELL DISTRIBUTION WIDTH SD 46.8 fL (36.4-46.3); WHITE BLOOD COUNT 6.92 K/uL (4.8-10.8)
[2017-12-17 16:15] LABS: BLOOD UREA NITROGEN 18 mg/dl (7-18); CALCIUM 9.7 mg/dl (8.5-10.1); CARBON DIOXIDE 29 mmol/L (21-32); CREATININE 0.87 mg/dl (0.60-1.20); GLUCOSE 68 mg/dl (70-99); POTASSIUM 3.6 mmol/L (3.5-5.1); SODIUM 138 mmol/L (136-145)
== END | disposition home or self-care (01) ==
LOC: C.LAB 14:10
PROVIDERS: ATTEND Dermatology
DX: R21 Rash and other nonspecific skin eruption (principal)